=== PATIENT | female | born 2000 | race Caucasian/White ===

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

== ENCOUNTER 2020-07-07 18:47 | Emergency (ER) | payer OTHER, SELFPAY ==
[~2020-07-07] VITALS: Ht 162.6 cm; Wt 59.1 kg
[2020-07-07 20:04] LABS: BASO # 0.1 10^3/uL (0.0-0.2); BASO % 0.3 % (0.0-1.0); EOS # 0.1 10^3/uL (0.0-0.5); EOS % 0.9 % (0.0-3.0); HEMATOCRIT 35.3 % (36.0-47.0); HEMOGLOBIN 12.2 g/dl (12.0-15.5); LYMPH # 1.7 10^3/uL (1.5-5.0); LYMPH % 11.8 % (24.0-44.0); MEAN CORPUSCULAR HEMOGLOBIN 31.2 pg (27.0-33.0); MEAN CORPUSCULAR HGB CONC 34.6 g/dl (32.0-36.5); MEAN CORPUSCULAR VOLUME 90.3 fl (80.0-96.0); MONO # 1.2 10^3/uL (0.0-0.8); MONO % 8.2 % (2.0-8.0); NEUTROPHILS # 11.3 10^3/uL (1.5-8.5); NEUTROPHILS % 78.2 % (36.0-66.0); PLATELET COUNT, AUTOMATED 312 10^3/uL (150-450); RED BLOOD COUNT 3.91 10^6/uL (4.00-5.40); WHITE BLOOD COUNT 14.4 10^3/uL (4.0-10.0)
[2020-07-07 20:10] LABS: APPEARANCE, URINE HAZY (CLEAR); BACTERIA, URINE AUTO NEGATIVE (NEGATIVE); BILIRUBIN, URINE AUTO NEGATIVE (NEGATIVE); BLOOD, URINE BLOOD 3+ (NEGATIVE); COLOR, URINE RED (YELLOW); GLUCOSE, URINE (UA) AUTO NEGATIVE (NEGATIVE); KETONE, URINE AUTO NEGATIVE (NEGATIVE); LEUKOCYTE ESTERASE, URINE AUTO TRACE (NEGATIVE); NITRITE, URINE AUTO NEGATIVE (NEGATIVE); PROTEIN, URINE AUTO 2+ mg/dL (NEGATIVE); RBC, URINE AUTO TNTC /HPF (0-3); SPECIFIC GRAVITY URINE AUTO 1.018 (1.002-1.035); SQUAMOUS EPITHELIAL CELL UR AU 3 /HPF (0-6); UROBILINOGEN, URINE AUTO 0.2 mg/dL (0.0-2.0); WBC, URINE AUTO 40 /HPF (0-3)
--- NOTE | 2020-07-07 20:59 | REPVR ---
PROCEDURE INFORMATION: Exam: US First Trimester, Transabdominal and US , Transvaginal Exam date and time: 07/07/2020 8:20 PM Age: 20 years old Clinical indication: Lmp or gestational age (in weeks): 05/15/2020; Vaginal bleeding and cramping; TECHNIQUE: Imaging protocol: Real-time transabdominal obstetrical ultrasound of the maternal pelvis and a first trimester , less than 14 weeks 0 days, with image documentation. Transvaginal imaging was used for better evaluation of the fetus, adnexa, and/or cervix. COMPARISON: No relevant prior studies available. FINDINGS: Gestation: No intrauterine or extrauterine gestation is seen. No gestational sac, pole, or yolk sac is visualized. Embryonic/ heart rate: No cardiac activity is visualized. Placenta: No placenta is visualized. Amniotic fluid: No amniotic fluid is visualized. MATERNAL: Uterus: The anteverted uterus is normal in appearance and measures 7.9 cm x 3.7 cm x 3.8 cm. No myometrial mass is noted. The endometrium is normal in appearance and measures 11 mm in thickness. Cervix: Unremarkable. Right adnexa: The right ovary was not visualized due to obscuration by intestinal gas. Left adnexa: The left ovary was not visualized due to obscuration by intestinal gas. Intraperitoneal space: No free fluid is seen from the images obtained. IMPRESSION: No intrauterine or extrauterine or free fluid identified in the pelvis. Differential diagnostic considerations include a spontaneous complete , an early normal or abnormal , and an ectopic . Follow-up serial beta hCG levels and a repeat obstetrical ultrasound when beta hCG levels reach greater than 2,000 mIU/mL or as clinically indicated are suggested. Electronically signed by: Lawrence Cabrera On 07/07/2020 20:59:51 PM
[2020-07-07] MEDS ORDERED: IBUP-1022 PO (21:40)
[2020-07-07] MEDS ORDERED: ZOFR4TAB16 PO (21:40)
[2020-07-07 22:00] VITALS: BP 118/61
[2020-07-07] MEDS ORDERED: LEXA1TAB PO (22:00)
[2020-07-07] MEDS ORDERED: TRAZ-189 PO (22:00)
== END 2020-07-07 22:04 | disposition home or self-care (01) ==
LOC: M ED 18:47
DX: O03.9 Complete or unspecified spontaneous abortion without complication (principal); Z88.2 Allergy status to sulfonamides; Z79.899 Other long term (current) drug therapy

== ENCOUNTER 2021-02-11 18:19 | Emergency (ER) | payer OTHER ==
[~2021-02-11] VITALS: Ht 165.1 cm; Wt 75.0 kg
[~2021-02-11 18:19] MED LIST: IBUP-1022 PO; LEXA1TAB PO; TRAZ-189 PO; ZOFR4TAB16 PO
[2021-02-11 18:20] VITALS: BP 135/86
[2021-02-11] MEDS ORDERED: ZIPR20CA13 PO (18:27)
[2021-02-11] MEDS ORDERED: BOOSTRIX/ADACEL VACCINE (DIPHTH/PERTUSS/ACELL/TETANUS) 0.5ML SYR IM ONE (20:00)
[2021-02-11] MEDS ORDERED: CEPH500C PO (20:00)
[2021-02-11] MEDS ORDERED: CEPHALEXIN 500 MG CAP PO ONE (20:20)
== END 2021-02-11 20:33 | disposition home or self-care (01) ==
LOC: M ED 18:19
DX: L03.012 Cellulitis of left finger (principal); F41.9 Anxiety disorder, unspecified; F31.9 Bipolar disorder, unspecified; F90.9 Attention-deficit hyperactivity disorder, unspecified type; F43.10 Post-traumatic stress disorder, unspecified; Z88.2 Allergy status to sulfonamides; Z79.899 Other long term (current) drug therapy; Z23 Encounter for immunization